=== PATIENT | female | born 1995 | race Caucasian/White ===

== ENCOUNTER 2017-05-29 19:13 | Emergency (ER) | payer OTHER ==
[~2017-05-29] VITALS: Ht 165.1 cm; Wt 76.5 kg
[2017-05-29 19:16] VITALS: Ht 165.1 cm; Wt 76.5 kg
--- NOTE | 2017-05-29 21:45 | ERD ---
ER Documentation Chief Complaint Date/Time DATE: 05/29/17 TIME: 21:41 Chief Complaint fever w/ body aches today, headache HPI This 21-year-old female presents to emergency department with a 3 day hx of dysuria, described ans burning and urgency, pt stated fever and CARCAMO starting today. denies any other symptoms . LMP 05/07/17 . 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 denies chance of , denies back pain ROS All systems reviewed and are negative except as per history of present illness. Allergies Allergies: Coded Allergies: No Known Allergy (Unverified , 05/29/17) Physical Exam Vitals Vital Signs Date Time Temp Pulse Resp B/P Pulse Ox O2 Delivery O2 Flow Rate FiO2 05/29/17 19:16 102.0 124 20 131/83 99 Vitals stable, triage notes reviewed, temperature noted at 102 treated with 600 mg of Motrin Physical Exam Const: Well-nourished well-appearing well-hydrated obvious discomfort no acute distress Head: Eyes: Normal Conjunctiva, PERRLA, EOMI ENT: Bilateral tympanic membranes translucent, positive light reflex, nasal mucosa moist with out crest or bleeding points. Oropharynx is moist, tongue midline, uvula midline, tonsils not visualized. Neck: Full range of motion..~ No meningismus. Resp: Clear to auscultation bilaterally, no rales wheezes or rhonchi Cardio: Abd: Soft, non tender, non distended. No McBurney's point tenderness, no CVA tenderness Skin: Back: Ext: Neur: Awake and alert Psych: Normal Mood and Affect Results 24 hrs Laboratory Tests Test 05/29/17 22:04 Urine Color YELLOW Urine Clarity TURBID Urine pH 5.0 Urine Specific [place] 1.041 Urine Ketones 1+mg/dL Urine Nitrite NEGATIVEmg/dL Urine Bilirubin NEGATIVEmg/dL Urine Urobilinogen NEGATIVEmg/dL Urine Leukocyte Esterase 3+Wicho/ul Urine Microscopic RBC 182/HPF Urine Microscopic WBC > 182/HPF Urine Squamous Epithelial Cells MANY/HPF Urine Bacteria MODERATE/HPF Urine Mucus FEW/HPF Urine Hemoglobin 1+mg/dL Urine Glucose 3+mg/dL Urine Total Protein 2+mg/dl Current Medications Medications (Trade) Dose Ordered Sig/Brittney Route PRN Reason Start Time Stop Time Status Last Admin Dose Admin Acetaminophen (Tylenol Tab) 650 mg ONCE ONCE PO 05/29/17 22:00 05/29/17 22:01 DC 05/29/17 22:06 Ibuprofen (Motrin) 600 mg ONCE ONCE PO 05/29/17 22:00 05/29/17 22:01 DC 05/29/17 22:06 Urinalysis positive for leukocytosis negative for nitrates findings suggestive of UTI. Procedures/MDM This 21-year-old female presents to emergency department for evaluation of dysuria and fever, symptoms started 3 days ago and worsened today. Patient reports nausea without vomiting, abnormal menstruation last month. Patient's U hCG negative for evidence of , urinalysis pending, I have low suspicion for acute abdomen, nephrolithiasis, cholecystitis physical exam and history support urinary tract infection, pyelonephritis, Today's emergency room visit included 600 mg of Motrin for fever with reduction as expected.Urinalysis is positive for evidence of leukocytosis suggestive and infection. Patient will be treated with Keflex 500 mg 3 times daily 10 days instructed to follow- up with primary care physician for repeat urinalysis if symptoms persist after clinical course is complete return to emergency department if symptoms persist after 2 days on antibiotics. Patient will also receive Pyridium 200 mg 1 tab p.o. 3 times daily 3 days, teaching that medication will turn urine orange. Increase fluids, increase rest, continue Tylenol and Motrin for fever reduction. Patient is stable with no new complaints during ER course, clinically there is no current evidence to suggest sepsis, acute abdomen, Pyelonephritis or any other emergent condition appearing to require further evaluation or hospitalization. I feel the patient is stable for discharge at this time. I have discussed results, examination findings, the treatment plan with the patient and family present prior to discharge. Indications for emergent reevaluation, side effects of medication were also discussed. All questions were answered. Patient verbalizes understanding and agrees with plan of care. Departure Diagnosis: Primary Impression: UTI (urinary tract infection) Urinary tract infection type: site unspecified Hematuria presence: with hematuria Qualified Code: N39.0 - Urinary tract infection with hematuria, site unspecified Condition: Good Patient Instructions: Understanding Urinary Tract Infections (UTIs) Referrals: [facility] Additional Instructions: Thank you for for coming to [facility] for your care today. Please ask your nurse or provider if you have questions about your care today and do not leave until all your questions have been answered. Please use any medications given as directed and follow-up with your doctor (or the doctor you were referred to) in the next 2-3 days. If you do not have a primary care doctor you may follow up at the [facility] (listed below). You may also use motrin and tylenol as needed for fever and/or pain unless instructed otherwise by your provider or nurse. Indications for more urgent follow-up have been discussed, but you may return to the Emergency Department at ANY time for any worrisome or worsening symptoms. If you have abdominal pain, please know that no test or exam you received is perfect and you should follow up within 8 hours for continued pain. If you had any imaging studies today, such as an X-Ray or CT Scan, these studies will be reviewed later by a radiologist. You will be called if there are important findings that were not identified today, so make sure the contact information you provided at registration is correct. If you received any narcotic pain control medicine today, such as Vicodin, Morphine or Dilaudid, your coordination and judgment may be affected for a number of hours. Please do not drive or operate heavy machinery, and you may want someone to assist you at home. If you were given a prescription for narcotic medication, be aware that it is very addictive- use sparingly and only if necessary. ANITHA JUAREZ May 29, 2017 21:45
[2017-05-29] MEDS ORDERED: ACETAMINOPHEN 325 MG TAB PO ONE (22:00)
[2017-05-29] MEDS ORDERED: IBUPROFEN 600 MG TAB PO ONE (22:00)
[2017-05-29 22:54] LABS: ADD UMIC YES; UR ASCORBIC ACID 40 mg/dL (NEGATIVE); UR BACTERIA MODERATE /HPF (NONE SEEN); UR BILIRUBIN (Dip) NEGATIVE (NEGATIVE); UR BLOOD (Dip) 1+ mg/dL (NEGATIVE); UR CLARITY TURBID (CLEAR); UR COLOR YELLOW (YELLOW); UR GLUCOSE (Dip) 3+ mg/dL (NEGATIVE); UR KETONES (Dip) 1+ mg/dL (NEGATIVE); UR LEUKOCYTE ESTERASE (Dip) 3+ Leu/ul (NEGATIVE); UR MUCUS FEW /HPF (NONE SEEN); UR NITRITE (Dip) NEGATIVE (NEGATIVE); UR RBC 182 /HPF (0-5); UR SPECIFIC GRAVITY (Dip) 1.041 (1.003-1.030); UR SQUAMOUS EPITHELIAL CELL MANY /HPF (FEW); UR TOTAL PROTEIN (Dip) 2+ mg/dl (NEGATIVE); UR UROBILINOGEN (Dip) NEGATIVE (NEGATIVE); UR WBC CLUMPS OCCASIONAL /HPF (NONE SEEN)
[2017-05-29] MEDS ORDERED: PHEN-538 PO (23:30)
[2017-05-29] MEDS ORDERED: CEPH-443 PO (23:30)
[2017-05-29 23:31] VITALS: TEMP 100.3
== END 2017-05-30 00:19 | disposition home or self-care (01) ==
LOC: FTE 19:13
DX: N39.0 Urinary tract infection, site not specified (principal)
CPT/HCPCS: 81001; 99283

== ENCOUNTER 2017-06-01 12:28 | Emergency (ER) | payer MEDICAID ==
[~2017-06-01] VITALS: Ht 160 cm; Wt 74.5 kg
[~2017-06-01 12:28] MED LIST: CEPH-443 PO; PHEN-538 PO
[2017-06-01 12:30] VITALS: Ht 160 cm; Wt 74.5 kg
[2017-06-01] MEDS ORDERED: HYDROCODONE/APAP (5/325) TAB PO ONE (13:00)
--- NOTE | 2017-06-01 14:04 | ERD ---
ER Documentation Chief Complaint Date/Time DATE: 06/01/17 TIME: 13:57 Chief Complaint TREATED ON FRI FOR UTI HERE. MORE VAG PAIN. HAVING UNPROTECTED SEX HPI This is a 21-year-old female presenting to the emergency department with vaginal pain after unprotected sex. Patient was here 3 days ago and was having dysuria and was diagnosed with UTI. Patient was sent home with Keflex and states "this medicine is not working for me." Patient states she is now has "pimples" on her vagina. Patient has burning pain to vagina rating pain 10/10. Patient also reports burning urination. No pelvic or abdominal pain. No urinary frequency or urgency. No hematuria. No nausea, vomiting or diarrhea. ROS All systems reviewed and are negative except as per history of present illness. Medications Home Meds Active Scripts Nitrofurantoin Monohyd Macrocr* (Macrobid*) 100 Mg Capsr, 100 MG PO BID for 5 Days, CAP Prov:MELINDA CASTILLO NP 06/01/17 Fluconazole* (Diflucan*) 150 Mg Tablet, 150 MG PO ONCE, #1 TAB Prov:MELINDA CASTILLO NP 06/01/17 Ibuprofen* (Motrin*) 600 Mg Tab, 600 MG PO Q6, #20 TAB Prov:MELINDA CASTILLO NP 06/01/17 Hydrocodone/Acetaminophen ([place] 5-325 Tablet) 1 Each Tablet, 1 EACH PO Q6 Y for SEVERE PAIN LEVEL 7-10, #10 TAB Prov:MELINDA CASTILLO NP 06/01/17 Acyclovir* (Acyclovir*) 400 Mg Tablet, 400 MG PO TID for 10 Days, TAB Prov:MELINDA CASTILLO NP 06/01/17 Phenazopyridine Hcl* (Pyridium*) 200 Mg Tab, 200 MG PO TID Y for URINARY PAIN, # 6 TAB Prov:LARRY,ANITHA 05/29/17 Cephalexin* (Keflex*) 500 Mg Capsule, 500 MG PO QID for 10 Days, #30 CAP Prov:LARRY,ANITHA 05/29/17 Allergies Allergies: Coded Allergies: No Known Allergy (Unverified , 05/29/17) PMhx/Soc Medical and Surgical Hx: pt denies Medical Hx, pt denies Surgical Hx Hx Alcohol Use: No Hx Substance Use: No Hx Tobacco Use: No Physical Exam Vitals Vital Signs Date Time Temp Pulse Resp B/P Pulse Ox O2 Delivery O2 Flow Rate FiO2 06/01/17 15:25 98.8 72 17 134/89 100 Room Air 06/01/17 12:30 98.7 117 18 136/93 100 Physical Exam Const: Alert Head: Atraumatic Eyes: Normal Conjunctiva ENT: Normal External Ears, Nose and Mouth. Neck: Full range of motion..~ No meningismus. Resp: Clear to auscultation bilaterally Cardio: Regular rate and rhythm, no murmurs Abd: Soft, non tender, non distended. Normal bowel sounds Skin: No petechiae or rashes Back: No midline or flank tenderness Ext: No cyanosis, or edema Neur: Awake and alert Psych: Normal Mood and Affect : Multiple, numerous vesicular lesions from upper labia extending to opening of anus. There is copious amount of thick, purulent yellow discharge. Results 24 hrs Laboratory Tests Test 06/01/17 12:45 Urine Color [place] Urine Clarity SLIGHTLY CLOUDY Urine pH 5.0 Urine Specific [place] 1.027 Urine Ketones 2+mg/dL Urine Nitrite POSITIVEmg/dL Urine Bilirubin NEGATIVEmg/dL Urine Urobilinogen 1+mg/dL Urine Leukocyte Esterase 3+Wicho/ul Urine Microscopic RBC 19/HPF Urine Microscopic WBC 83/HPF Urine Squamous Epithelial Cells FEW/HPF Urine Mucus FEW/HPF Urine Hemoglobin 2+mg/dL Urine Glucose 3+mg/dL Urine Total Protein 1+mg/dl Current Medications Medications (Trade) Dose Ordered Sig/Brittney Route PRN Reason Start Time Stop Time Status Last Admin Dose Admin Acetaminophen/ Hydrocodone Bitart ([place] (5/325)) 1 tab ONCE ONCE PO 06/01/17 13:00 06/01/17 13:01 DC 06/01/17 13:02 Ceftriaxone Sodium (Rocephin) 1 gm ONCE ONCE IM 06/01/17 15:00 06/01/17 15:01 DC 06/01/17 15:02 Procedures/MDM MDM: This is a 21-year-old female presenting to emergency department with vaginal pain 3 days. Patient was here 3 days ago and was diagnosed with UTI and sent home with prescription for Keflex. Now patient presents with burning pain to external vagina. There is multiple numerous vesicular lesions to upper labia that extends to anal opening. There is also copious amounts of purulent thick yellow discharge. No fevers or chills. No suprapubic tenderness. No CVA tenderness. Vital signs are stable.No active vomiting or diarrhea. UA shows 3+ leukocytosis, positive nitrite, and WBC 83. Urine is negative. Gonorrhea and Chlamydia culture pending. Consulted Dr. Burleson regarding this patient and we agree that patient is appropriate for receiving Rocephin 1gm IM while in the ED for UTI and low suspicion for Pyelonephritis. Patient is afebrile and appears in no acute distress throughout ED visit. Patient tolerated injection well. Discussed findings with patient. Differential diagnosis includes but not limited to herpes simplex virus, vaginitis, candidiasis, UTI, pelvic inflammatory disease, gonorrhea and chlamydia. Since rash appears to be vesicular patient likely has herpes simplex virus and discharged likely a vaginitis candidal infection. Low suspicion for pyelonephritis or severe bacterial infection. Patient is appropriate for outpatient management will given prescription for acyclovir, [place], Ibuprofen, Macrobid and Diflucan. Instructed patient and patient's mother to follow-up with primary care provider in the next 2-3 days for reassessment and additional management. Return to ED for any high fever, chest pain, difficulty breathing, shortness breath, wheezing, vomiting, diarrhea , abdominal pain or any new or worsening symptoms. Patient verbalizes understanding. All questions answered at discharge. Disclaimer: Inadvertent spelling and grammatical errors are likely due to EHR/ dictation software use and do not reflect on the overall quality of patient care. Also, please note that the electronic time recorded on this note does not necessarily reflect the actual time of the patient encounter. Departure Diagnosis: Primary Impression: UTI (urinary tract infection) Urinary tract infection type: acute cystitis Hematuria presence: with hematuria Qualified Code: N30.01 - Acute cystitis with hematuria Additional Impression: HSV infection Condition: Stable MELINDA CASTILLO NP Jun 01, 2017 14:04
[2017-06-01] MEDS ORDERED: IBUP-1542 PO (14:09)
[2017-06-01] MEDS ORDERED: HYDR-906 PO (14:09)
[2017-06-01] MEDS ORDERED: ACYC400T2 PO (14:09)
[2017-06-01] MEDS ORDERED: FLUC150T17 PO (14:10)
[2017-06-01 14:15] LABS: ADD UMIC YES; UR ASCORBIC ACID NEGATIVE (NEGATIVE); UR BILIRUBIN (Dip) NEGATIVE (NEGATIVE); UR BLOOD (Dip) 2+ mg/dL (NEGATIVE); UR CLARITY SLIGHTLY CLOUDY (CLEAR); UR COLOR AMBER (YELLOW); UR GLUCOSE (Dip) 3+ mg/dL (NEGATIVE); UR KETONES (Dip) 2+ mg/dL (NEGATIVE); UR LEUKOCYTE ESTERASE (Dip) 3+ Leu/ul (NEGATIVE); UR MUCUS FEW /HPF (NONE SEEN); UR NITRITE (Dip) POSITIVE (NEGATIVE); UR RBC 19 /HPF (0-5); UR SPECIFIC GRAVITY (Dip) 1.027 (1.003-1.030); UR SQUAMOUS EPITHELIAL CELL FEW /HPF (FEW); UR TOTAL PROTEIN (Dip) 1+ mg/dl (NEGATIVE); UR UROBILINOGEN (Dip) 1+ mg/dL (NEGATIVE)
[2017-06-01] MEDS ORDERED: NITR-58 PO (14:38)
[2017-06-01] MEDS ORDERED: CEFTRIAXONE 1 GM INJ IM ONE (15:00)
[2017-06-01 15:25] VITALS: BP 134/89; PULSE 72; RESP 17; TEMP 98.8
== END 2017-06-01 15:26 | disposition home or self-care (01) ==
LOC: FTE 12:28
DX: N30.01 Acute cystitis with hematuria (principal); B00.9 Herpesviral infection, unspecified
CPT/HCPCS: 81001; 87086; 96372; J0696; Z7502; Z7610